=== PATIENT | male | born 1995 | race Caucasian/White ===

== ENCOUNTER 2017-12-05 08:58 | Outpatient (CLI) | payer OTHER | END 2017-12-05 09:06 | disposition home or self-care (01) | LOC: RAD 08:58 | DX: M17.0 Bilateral primary osteoarthritis of knee (principal) ==

== ENCOUNTER 2018-02-06 08:47 | Outpatient (CLI) | payer OTHER | END 2018-02-06 08:55 | disposition home or self-care (01) | LOC: MRI 08:47 | DX: M23.241 Derangement of anterior horn of lateral meniscus due to old tear or injury, right knee (principal) | CPT/HCPCS: 73721 ==